=== PATIENT | female | born 1985 | race Two or more races ===

== ENCOUNTER 2016-08-06 17:14 | Inpatient (IN) | payer MEDICAID, OTHER ==
[2016-08-06 17:00] VITALS: BP 152/97; PULSE 105; RESP 18; TEMP 98.2
[2016-08-07 05:55] VITALS: BP 159/93; PULSE 89; RESP 17; TEMP 98.1; O2SAT 100
--- NOTE | 2016-08-07 11:58 | HHI.HP ---
Provisional Diagnosis Admission Date August 06, 2016 at 17:14 [place]. Major depressive disorder recurrent moderate f 33.1, marijuana abuse F 12.10 Certification of Person's Competence To Provide Express and Informed Consent I have personally examined Maryam Kebede , a person being served at [facility] on, August 07, 2016 11:42. Express and informed consent means consent voluntarily given in writing, by a competent person, after sufficient explanation and disclosure of the subject matter involved to enable the person to make a knowing and willful decision without any element of force, fraud, deceit, duress, or other form of constraint or coercion. This person is 18 years of age or older, is not now known to be incompetent to consent to treatment with a guardian advocate, and does not have a health care surrogate or proxy currently making medical treatment decisions. I have found this person to be one of the following: [x] Competent to provide express and informed consent, as defined above, for voluntary admission to this facility and is competent to provide express and informed consent for treatment. He/she has the consistent capacity to make well reasoned, willful, and knowing decisions concerning his or her medical or mental health treatment. The person fully and consistently understands the purpose of the admission for examination/placement and is fully capable of personally exercising all rights [place] Incompetent to provide express and informed consent to voluntary admission, and this is incompetent to provide express and informed consent to treatment. The person must be transferred to involuntary status and a petition for a guardian advocate filed with the Circuit Court. [] Refusing to provide express and informed consent to voluntary admission but is competent to provide express and informed consent for treatment. The person must be discharged or transferred to involuntary status. Form shall be completed within 24 hours of a person's arrival at the receiving facility and filed in the clinical record of each person: 1. Admitted on a voluntary basis 2. Permitted to provide express and informed consent to his/her own treatment 3. Allowed to transfer from involuntary to voluntary status 4. Prior to permitting a person to consent to his or her own treatment after having been previously found incompetent to consent to treatment. History of Present Illness Capacity: Has Capacity HPI Patient is a 31-year-old [place] female recently moved here from [place] about 6 months ago. Coming here single-parent with a 13-year-old and 11- year-old child. Having only some friends locally. 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 Patient went to [facility] complaining of depression was Azucena acted at that facility Zeng act signed by a Dr. Turner dukes dated 08/06/16 at 0930 hours stating depression suicidal ideation Zeng act reviewed stating essentially that the patient was admitting to being depressed there is worsening over the last several months along with suicidal ideation with no specific plan. Patient seen screened in that ED urine toxicology positive for marijuana and negative for alcohol. Patient transferred here under the Zeng act. At the present time ration sitting quietly in her room present also was nurse Drake, counselor Reta, and matting press tender through our computer. Patient states she has a history of depression and [facility] has been on medication there that she identified as Zoloft. They she's been out of it for a few months. Medication increased depression though she denies suicidality homicidality voices or visions. She says her sleep has been somewhat impaired her appetite is somewhat decreased, she denies voices or visions, when asked about her marijuana use she minimized it since she was just in a marijuana smoke environment. She denied other drug use. She denies any prior psychiatric hospitalizations. Denies any prior suicide ideation or attempt. Leonel there is some history mental illness in her family. Denies any physical or sexual abuse. She states she has a good relationship with children and does wish to return home. It appears part of her motivation for going to the ED was to get a refill of her medication. At the present time patient does not meet criteria for inpatient psychiatric hospitalization under the Zeng act. I will lift Zeng act. We will give patient a Rx for Zoloft 25 mg #30 with no refill. Refer patient to [facility] outpatient medication services. Also recommendation for follow-up with NA Review of Systems Constitutional: DENIES: Diaphoretic episodes, Fatigue, Fever, Weight gain, Weight loss, Chills, Dizziness, Change in appetite, Night Sweats Endocrine: DENIES: Abnorml menstrual pattern, Heat/cold intolerance, Polydipsia , Polyuria, Polyphagia Eyes: DENIES: Blurred vision, Diplopia, Eye inflammation, Eye pain, Vision loss , Photosensitivity, Double Vision Ears, nose, mouth, throat: DENIES: Tinnitus, Hearing loss, Vertigo, Nasal discharge, Oral lesions, Throat pain, Hoarseness, Ear Pain, Running Nose, Epistaxis, Sinus Pain, Toothache, Odynophagia Respiratory: DENIES: Apneas, Cough, Snoring, Wheezing, Hemoptysis, Sputum production, Shortness of breath Cardiovascular: DENIES: Chest pain, Palpitations, Syncope, Dyspnea on Exertion , PND, Lower Extremity Edema, Orthopnea, Claudication Gastrointestinal: DENIES: Abdominal pain, Black stools, Bloody stools, Constipation, Diarrhea, Nausea, Vomiting, Difficulty Swallowing, Anorexia Genitourinary: DENIES: Abnormal vaginal bleeding, Dysmenorrhea, Dyspareunia, Sexual dysfunction, Urinary frequency, Urinary incontinence, Urgency, Hematuria , Dysuria, Nocturia, Vaginal discharge Musculoskeletal: DENIES: Joint pain, Muscle aches, Stiffness, Joint Swelling, Back pain, Neck pain Integumentary: DENIES: Abnormal pigmentation, Pruritus, Rash, Nail changes, Breast masses, Breast skin changes, Nipple discharge Hematologic/lymphatic: DENIES: Bruising, Lymphadenopathy Immunologic/allergic: DENIES: Eczema, Urticaria Neurologic: DENIES: Abnormal gait, Headache, Localized weakness, Paresthesias, Seizures, Speech Problems, Tremor, Poor Balance Psychiatric: COMPLAINS OF: Depression Past Psych History Psychological trauma history Patient denies physical or sexual abuse Violence risk - others (6 mos) Low Violence risk - self (6 mos) Low Substance Abuse History Drugs/Alcohol past 12 months Patient quite vague and ambiguous about marijuana use though urine toxicology is positive for marijuana Past Family Social History Past Medical History Patient states history asthma, and hypertension Family History Patient's history of depression with mother and sister Social History Patient single-parent with 13-year-old and 11-year-old children, her only support group appears to be some local friends Patient's Strengths (min. 2) Patient verbal healthy able to express herself Physical Exam Patient seen screen of [facility] exam reviewed and agreed with vital signs blood pressure 159/93 pulse 89 respirations 17 Vital Signs Vital Signs Date Time Temp Pulse Resp B/P Pulse Ox O2 Delivery O2 Flow Rate FiO2 08/07/16 05:55 98.1 89 17 159/93 100 Mental Status Examination Alert oriented thin slender Parisian female appears somewhat younger than stated age clean and neat calm cooperative if somewhat regarded to her marijuana use history with fair eye contact Appearance Clean and neat Speech: Unremarkable (Comoran speaking) Orientation: x3 Memory: Unremarkable Thought Process: Logical, Organized Thought Content: Unremarkable Language Com[place]an Fund of Knowledge Fair Hallucination Type: None Attention and Concentration: Other (fair) Suicidal Ideation: No (denies) Previous Suicide Attempts: No (denies) Homicidal Ideation: No (denies) Previous Homicide Attempts: No (denies) Insight: Poor Judgment: Poor Affect: Other (slight decrease range of motion intensity) Mood: Euthymic (to mildly dysphoric) Motor Activity: Normal gait Assessment & Plan Problem List: (1) Marijuana abuse ICD Code: F12.10 (2) Major depressive disorder, recurrent, moderate ICD Code: F33.1 Assessment & Plan Estimated LOS: days if this time patient does not meet Zeng criteria will lift Zeng act. Patient to be discharged to herself today with Rx Zoloft 25 mg #30 1 AM with no refill, referred to [facility] outpatient medication services. Refer also to NA to address marijuana use Discharge Planning See above Request HC Surrog/Guard Advoc?: No Noah Tolentino MD August 07, 2016 11:58
[2016-08-07] MEDS ORDERED: ZOLO25TA PO (12:01)
--- NOTE | 2016-08-07 12:05 | HHI.DS ---
Psychiatry Discharge Summary Inpatient Psychiatric care?: Yes Advance Directive: No Reason Not Provided: not interested Mental Health AdvanceDirective: No Health Care Proxy: No Admission Admission Date August 06, 2016 at 17:14 Admission Diagnosis: (1) Major depressive disorder, recurrent, moderate ICD Code: F33.1 (2) Marijuana abuse ICD Code: F12.10 Brief History Patient is a 31-year-old Taiwanese female recently moved here from [place] about 6 months ago. Coming here single-parent with a 13-year-old and 11- year-old child. Having only some friends locally. 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 Patient went to [facility] complaining of depression was Azucena acted at that facility Zeng act signed by a Dr. Turner dukes dated 08/06/16 at 0930 hours stating depression suicidal ideation Zeng act reviewed stating essentially that the patient was admitting to being depressed there is worsening over the last several months along with suicidal ideation with no specific plan. Patient seen screened in that ED urine toxicology positive for marijuana and negative for alcohol. Patient transferred here under the Zeng act. At the present time ration sitting quietly in her room present also was nurse Drake, counselor Reta, and copper etcher through our computer. Patient states she has a history of depression and [place] has been on medication there that she identified as Zoloft. They she's been out of it for a few months. Medication increased depression though she denies suicidality homicidality voices or visions. She says her sleep has been somewhat impaired her appetite is somewhat decreased, she denies voices or visions, when asked about her marijuana use she minimized it since she was just in a marijuana smoke environment. She denied other drug use. She denies any prior psychiatric hospitalizations. Denies any prior suicide ideation or attempt. Leonel there is some history mental illness in her family. Denies any physical or sexual abuse. She states she has a good relationship with children and does wish to return home. It appears part of her motivation for going to the ED was to get a refill of her medication. At the present time patient does not meet criteria for inpatient psychiatric hospitalization under the Zeng act. I will lift Zeng act. We will give patient a Rx for Zoloft 25 mg #30 with no refill. Refer patient to [facility] outpatient medication services. Also recommendation for follow-up with [facility] Tobacco Use In Past 30 Days: 5 or More Cigarettes/Day Alcohol Use: Never Hospital Course Please see brief history above. Patient does not meet Zeng criteria will lift Zeng act. Patient to be discharged to herself today Rx Zoloft 25 mg #30 1 AM with no refill, follow-up [facility] outpatient medication services, referred to NA, also referred to PCP for hypertension Results Blood Pressure 159 / 93 Vital Signs Date Time Temp Pulse Resp B/P Pulse Ox O2 Delivery O2 Flow Rate FiO2 08/07/16 05:55 98.1 89 17 159/93 100 Urine toxicology at [facility] positive for marijuana Summary of Procedures None done Pending results at discharge: No Medications # of Antipsychotic meds at D/C: 0 Approp Antipsych med options 1 - Minimum of three failed multiple trials of monotherapy. 2 - Documented plan to taper to monotherapy due to previous use of multiple meds OR cross-taper in progress at D/C. 3 - Documentation of augmentation of Clozapine. 4 - Justification other than those listed in allowable values 1-3, document here : Discharge Discharge Date: August 07, 2016 Discharge Diagnosis: (1) Major depressive disorder, recurrent, moderate Diagnosis: Principal ICD Code: F33.1 (2) Marijuana abuse Diagnosis: Secondary ICD Code: F12.10 Mental Status Exam at Disch Alert oriented thin slight slender Taiwanese female oriented 4, she is normal active, mood is euthymic to mildly dysphoric, affect shows good range and intensity. Speech somewhat rapid pressure though only Swazi. No formal thought disorders noted. No other tumors hallucinations no delusions. Insight and judgment is poor to fair. Cognition grossly intact Pt Condition on Discharge: Stable Discharge Disposition: Discharge Home Discharge Instructions Diet Instructions: As Tolerated, No Restrictions Activities you can perform: Regular-No Restrictions Scheduled Appointment: Amandeep Ng Appointment Date: August 14, 2016 Appointment Time: 7:30am Discharge Time > 30 minutes Discharge/Advance Care Plan Health Problems: (1) Marijuana abuse (2) Major depressive disorder, recurrent, moderate Goals to promote your health * To prevent worsening of your condition and complications * To maintain your health at the optimal level Directions to meet your goals Take your medications as prescribed Follow your dietary instruction Follow activity as directed Keep your appointments as scheduled Take your immunizations and boosters as scheduled If your symptoms worsen call your PCP, if no PCP go to Urgent Care Center or Emergency Room For 21/10 questions related to your inpatient stay or results of tests pending at discharge, please contact Dr. Noah Tolentino at Smoking is Dangerous to Your Health. Avoid second hand smoking Noah Tolentino MD August 07, 2016 12:05
== END 2016-08-07 14:00 | disposition home or self-care (01) | DRG 885 ==
LOC: H260 17:14
PROVIDERS: ADMIT Psychiatry & Neurology Psychiatry; ATTEND Psychiatry & Neurology Psychiatry
DX: F33.1 Major depressive disorder, recurrent, moderate (principal); I10 Essential (primary) hypertension; J45.909 Unspecified asthma, uncomplicated; F12.10 Cannabis abuse, uncomplicated; F17.210 Nicotine dependence, cigarettes, uncomplicated; Z81.8 Family history of other mental and behavioral disorders